=== PATIENT | female | born 1940 | race African-American/Black ===

== ENCOUNTER 2018-09-29 16:42 | Emergency (ER) | payer MEDICARE, BC | END 2018-09-29 17:17 | disposition left against medical advice (07) | LOC: SCSER 16:42 | DX: R07.9 Chest pain, unspecified (principal); I10 Essential (primary) hypertension; Z79.899 Other long term (current) drug therapy; Z79.82 Long term (current) use of aspirin | CPT/HCPCS: 93005 ==